=== PATIENT | female | born 1990 | race Caucasian/White ===

== ENCOUNTER 2018-02-05 08:04 | Inpatient (IN) | payer MEDICAID ==
[2018-02-05] MEDS ORDERED: LACTATED RINGER'S 1,000 ML IV (08:17)
[2018-02-05] MEDS ORDERED: OXYTOCIN 30 UNITS/LR 500 ML IV ×3 (08:30→11:30)
[2018-02-05] MEDS ORDERED: METHYLERGONOVINE 0.2 MG INJ IM ×2 (08:30→11:30)
[2018-02-05] MEDS ORDERED: MISOPROSTOL 200 MCG TAB PR ×2 (08:30→11:30)
[2018-02-05] MEDS ORDERED: LIDOCAINE 1% (MPF) 30 ML INJ INJ (08:30)
[2018-02-05] MEDS ORDERED: CARBOPROST 250 MCG INJ IM ×2 (08:30→11:30)
[2018-02-05 08:36] LABS: ADD MAN DIFF? NO
[2018-02-05 08:42] LABS: BASOPHIL # 0.1 10^3/ul (0.0-0.1); BASOPHILS % 0.3 % (0.0-2.0); EOSINOPHILS # 0.2 10^3/ul (0.0-0.5); EOSINOPHILS % 1.2 % (0.0-7.0); HEMATOCRIT 38.1 % (37.0-47.0); HEMOGLOBIN 13.1 g/dl (12.0-16.0); LYMPHOCYTES # 2.1 10^3/ul (0.8-2.9); LYMPHOCYTES % 14.3 % (15.0-51.0); MEAN CORPUSCULAR HGB CONC 34.4 g/dl (32.0-37.0); MEAN CORPUSCULAR VOLUME 87.4 fl (82.0-101.0); MEAN PLATELET VOLUME 12.3 fl (7.4-10.4); MONOCYTE # 0.5 10^3/ul (0.3-0.9); MONOCYTES % 3.5 % (0.0-11.0); NEUTROPHIL # 11.7 10^3/ul (1.6-7.5); NEUTROPHILS % 80.2 % (39.0-77.0); PLATELET COUNT 196 10^3/UL (140-415); RED BLOOD COUNT 4.36 10^6/ul (4.20-5.40); RED CELL DISTRIBUTION WIDTH 13.5 % (11.5-14.5)
[2018-02-05 08:42] LABS: WHITE BLOOD COUNT 14.6 10^3/ul (4.8-10.8)
[2018-02-05 08:57] LABS: INR 0.92; PROTIME 12.4 Sec (11.9-14.9)
[2018-02-05] MEDS: IBUPROFEN 600 MG TAB PO ×3 (09:26→17:38)
[2018-02-05] MEDS: OXYTOCIN 30 UNITS/LR 500 ML IV (09:30)
[2018-02-05] MEDS ORDERED: IBUPROFEN 600 MG TAB PO (09:30)
[2018-02-05] MEDS ORDERED: SENNA/DOCUSATE NA (8.6MG/50MG) TAB PO (11:30)
[2018-02-05] MEDS ORDERED: ZOLPIDEM 5 MG TAB PO (11:30)
[2018-02-05] MEDS ORDERED: OXYCODONE/ASPIRIN (4.88/325) TAB PO (11:30)
[2018-02-05 19:48] LABS: RAPID PLASMA REAGIN NONREACTIVE (NR)
[2018-02-05] MEDS: SENNA/DOCUSATE NA (8.6MG/50MG) TAB PO (21:00)
[2018-02-06] MEDS: WITCH HAZEL/GLYCERIN PAD PR (00:26)
[2018-02-06] MEDS: BENZOCAINE 20% 56 ML SPRAY TOP (00:26)
[2018-02-06] MEDS: LANOLIN 7 GM TUBE TOP (00:27)
[2018-02-06] MEDS: IBUPROFEN 600 MG TAB PO ×5 (00:33→23:59)
[2018-02-06 07:20] LABS: ADD MAN DIFF? NO
[2018-02-06 07:24] LABS: BASOPHIL # 0.1 10^3/ul (0.0-0.1); BASOPHILS % 0.4 % (0.0-2.0); EOSINOPHILS # 0.7 10^3/ul (0.0-0.5); EOSINOPHILS % 5.6 % (0.0-7.0); HEMATOCRIT 30.3 % (37.0-47.0); HEMOGLOBIN 10.3 g/dl (12.0-16.0); LYMPHOCYTES % 24.8 % (15.0-51.0); MEAN CORPUSCULAR HEMOGLOBIN 30.1 pg (29.0-33.0); MEAN CORPUSCULAR VOLUME 88.6 fl (82.0-101.0); MEAN PLATELET VOLUME 11.7 fl (7.4-10.4); MONOCYTE # 0.6 10^3/ul (0.3-0.9); MONOCYTES % 5.3 % (0.0-11.0); NEUTROPHIL # 7.6 10^3/ul (1.6-7.5); NEUTROPHILS % 63.3 % (39.0-77.0); PLATELET COUNT 147 10^3/UL (140-415); RED BLOOD COUNT 3.42 10^6/ul (4.20-5.40); RED CELL DISTRIBUTION WIDTH 13.7 % (11.5-14.5)
[2018-02-06] MEDS: SENNA/DOCUSATE NA (8.6MG/50MG) TAB PO ×2 (09:52→21:00)
[2018-02-07] MEDS: IBUPROFEN 600 MG TAB PO ×2 (06:00→11:56)
[2018-02-07] MEDS: SENNA/DOCUSATE NA (8.6MG/50MG) TAB PO (08:37)
[2018-02-07] MEDS: DIPHTH/TET/ACEL PERTUSS (ADULT) 0.5 ML VIAL IM* (11:43)
== END 2018-02-07 16:27 | disposition home or self-care (01) | DRG 775 ==
LOC: OBT 08:04 → L-D 08:05 → OBT 08:05 → L-D 08:07 → PP1 12:34
PROVIDERS: Obstetrics & Gynecology
PROC: 10E0XZZ Delivery of Products of Conception, External Approach (ICD-10-PCS; principal; 2018-02-05)
PROC: 3E033VJ Introduction of Other Hormone into Peripheral Vein, Percutaneous Approach (ICD-10-PCS; 2018-02-05)
DX: O60.14X0 Preterm labor third trimester with preterm delivery third trimester, not applicable or unspecified (principal); Z3A.35 35 weeks gestation of pregnancy; Z37.0 Single live birth
CPT/HCPCS: 85025; 85610; 85730; 86592; 86850; 86900; 86901; 90715; 99464